=== PATIENT | male | born 1965 | race Caucasian/White ===

== ENCOUNTER 2019-12-22 16:29 | Emergency (ER) | payer OTHER ==
[~2019-12-22] VITALS: Ht 185.4 cm; Wt 94.4 kg
[2019-12-22 16:40] VITALS: BP 161/96
--- NOTE | 2019-12-22 16:59 | NUR ---
LAC TO LEFT MIDDLE FINGER WITH MEASURING TAPE. FALL PRECAUTIONS IN PLACE. CALL LIGHT WITHIN REACH.
[2019-12-22] MEDS ORDERED: LIDOCAINE-MPF 1%, 5ML ONE (17:11)
[2019-12-22] MEDS ORDERED: DIPH,PERTUSS(ACELL),TET VAC/PF 0.5 ML IM-VACC ONE ×2 (17:12→17:30)
[2019-12-22] MEDS ORDERED: LIDOCAINE 1%, 10ML INFIL ONE (17:30)
--- NOTE | 2019-12-22 17:38 | NUR ---
REPORT GIVEN TO BYRON HAILE.
[2019-12-22] MEDS ORDERED: NEOSPORIN OINT. PKT 1 PACKET ONE (17:48)
== END 2019-12-22 18:09 | disposition home or self-care (01) ==
LOC: ED 17:29
DX: S61.213A Laceration without foreign body of left middle finger without damage to nail, initial encounter (principal); W45.8XXA Other foreign body or object entering through skin, initial encounter; Y93.89 Activity, other specified; Y92.098 Other place in other non-institutional residence as the place of occurrence of the external cause; Y99.8 Other external cause status
CPT/HCPCS: 12041; 90471; 90715; 99284

== ENCOUNTER 2019-12-29 11:41 | Emergency (ER) | payer OTHER ==
[~2019-12-29] VITALS: Ht 185.4 cm; Wt 92.2 kg
--- NOTE | 2019-12-29 13:06 | NUR ---
Pt to room from lobby.
[2019-12-29 13:30] VITALS: BP 176/111
--- NOTE | 2019-12-29 13:39 | NUR ---
Pt resting on chair in room waiting for provider. Pt states verbal frustration for "having to wait so long" and, "I am hungry". Offered pt food. Provided empathetic listening. Charge nurse aware.
--- NOTE | 2019-12-29 14:57 | NUR ---
Pt requesting water. Provided water for patient. Pt stating verbal frustration of wait time. Provided empathetic listening to patient. Offered toileting, food, water to patient. Charge nurse aware. Pt requesting Advil. ED aware.
--- NOTE | 2019-12-29 15:23 | NUR ---
Pt discharged by ED MD and left before blood pressure could be rechecked.
== END 2019-12-29 15:15 | disposition home or self-care (01) ==
LOC: ED 15:00
DX: S61.213D Laceration without foreign body of left middle finger without damage to nail, subsequent encounter (principal); Z48.02 Encounter for removal of sutures; X58.XXXD Exposure to other specified factors, subsequent encounter
CPT/HCPCS: 99281